=== PATIENT | female | born 1990 | race Two or more races ===

== ENCOUNTER 2019-09-13 21:51 | Emergency (ER) | payer OTHER ==
[~2019-09-13] VITALS: Ht 152.4 cm; Wt 50.0 kg
[2019-09-13 21:57] VITALS: BP 122/72
[2019-09-13] MEDS ORDERED: HYDROcodone/APAP 7.5/325MG 1 TAB TABLET PO ONE (23:00)
[2019-09-13] MEDS ORDERED: DIPH,PERTUSS(ACELL),TET VAC/PF 0.5 ML SYRINGE. VAX IM ONE (23:00)
--- NOTE | 2019-09-13 23:10 | RAD ---
Three views Left finger: Clinical History: Crush injury. Technique: AP view of the hand, as well as lateral and oblique collimated views of the little finger were obtained. Comparison: None. Findings: The visualized osseous structures appear normal. Impression: No acute bony abnormality. Electronically signed by: Alejandro Garcia III, MD (09/13/2019 11:08 PM) [id number]
[2019-09-13] MEDS ORDERED: LIDOCAINE 1% Multi-Dose 20 ML VIAL. INJ ONE (23:30)
[2019-09-13] MEDS ORDERED: HYDR-3164 PO (23:58)
[2019-09-13] MEDS ORDERED: CEPH500C PO (23:58)
--- NOTE | 2019-09-13 23:58 | PHYS DOC ---
Past Medical History Past Medical History: No Pertinent History Past Surgical History: No Surgical History Smoking Status: Never Smoker Alcohol Use: None General Adult EDM: Chief Complaint: LACERATION/AVULSION HPI: HPI: Patient is a 29 year old female who presents with injury to her right fifth finger. Patient was at work and was working on a conveyor when her gloved hand was pulled into the conveyor belt and tore the glove off injuring her finger. Patient denies any loss of sensation and reports moderate pain to the finger. She denies any other injuries. [] Review of Systems: Review of Systems: Constitutional: Denies fever or chills. [] Respiratory: Denies cough or shortness of breath. [] Cardiovascular: Denies chest pain or edema. [] Musculoskeletal: Positive left fifth finger injury and pain. [] Integument: Laceration to the left small finger. [] Neurologic: Denies headache, focal weakness or sensory changes. [] Heart Score: Risk Factors: Risk Factors: DM, Current or recent (<one month) smoker, HTN, HLP, family history of CAD, obesity. Risk Scores: Score 0 - 3: 2.5% MACE over next 6 weeks - Discharge Home Score 4 - 6: 20.3% MACE over next 6 weeks - Admit for Clinical Observation Score 7 - 10: 72.7% MACE over next 6 weeks - Early Invasive Strategies Current Medications: Current Medications Medications (Trade) Dose Ordered Sig/Casandra Start Time Stop Time Status Last Admin Dose Admin Acetaminophen/ Hydrocodone Bitart (Lortab 7.5/325) 1 tab 1X ONCE 09/13/19 23:00 09/13/19 23:01 DC 09/13/19 22:37 1 TAB Diphtheria/ Tetanus/Acell Pertussis (ADACEL TDap SYRINGE) 0.5 ml ONCE ONCE 09/13/19 23:00 09/13/19 23:01 DC 09/13/19 22:38 0.5 ML Lidocaine HCl (Lidocaine 1% 20ml Vial) 20 ml 1X ONCE 09/13/19 23:30 09/13/19 23:31 DC 09/13/19 23:10 20 ML Allergies: Allergies: Allergies Coded Allergies Type Severity Reaction Last Updated Verified No Known Drug Allergies 09/13/19 No Physical Exam: PE: Constitutional: Well developed, well nourished, no acute distress, non-toxic appearance. [] Cardiovascular: Regular rate and rhythm [] Lungs & Thorax: Bilateral breath sounds clear to auscultation [] Skin: There is a laceration to the left small finger that extends from the PIP joint distally to the tip of the finger along the lateral margin of the finger. Laceration extends into subcutaneous tissue with ragged margins. There is moderate soft tissue swelling with significant gap noted between margins. There is involvement of the fingernail with partial avulsion. [] Current Patient Data: Vital Signs: Vital Signs Date Time Temp Pulse Resp B/P (MAP) Pulse Ox O2 Delivery O2 Flow Rate FiO2 09/13/19 21:57 98.2 75 18 122/72 (89) Room Air 98.2 EKG: EKG: [] Radiology/Procedures: Radiology/Procedures: [] Course & Med Decision Making: Course & Med Decision Making Pertinent Labs and Imaging studies reviewed. (See chart for details) Laceration was repaired after prepping and draping in normal sterile fashion and anesthetizing with 1% lidocaine. A total of 9 simple interrupted sutures were placed utilizing 5-0 Ethilon suture material. Fairly good reapproximation of wound margins was achieved. Patient tolerated procedure well. SpotMe Disclaimer: SpotMe Disclaimer: This electronic medical record was generated, in whole or in part, using a voice recognition dictation system. Departure Departure Impression: Primary Impression: Finger laceration Qualified Codes: S61.317A - Laceration without foreign body of left little finger with damage to nail, initial encounter Disposition: 01 HOME, SELF-CARE Condition: STABLE Referrals: NO PCP (PCP) Patient Instructions: Form - Excuse from Work, School, or Physical Activity, Laceration Care, Adult Additional Instructions: Return for suture removal in 10-14 days. Scripts Cephalexin (CEPHALEXIN) 500 Mg Capsule 1 CAP PO BID, #20 CAP Prov: ANJELICA MCNEILL Jr. DO 09/13/19 Hydrocodone/Apap 5-325 (NORCO 5-325 TABLET) 1 Each Tablet 1 EACH PO PRN Q6HRS PRN for PAIN, #15 as needed for pain Prov: ANJELICA MCNEILL Jr. DO 09/13/19 ANJELICA MCNEILL Jr. DO September 13, 2019 23:58
== END 2019-09-14 00:11 | disposition home or self-care (01) ==
LOC: ER 21:51
DX: S61.317A Laceration without foreign body of left little finger with damage to nail, initial encounter (principal); R60.0 Localized edema; X50.9XXA Other and unspecified overexertion or strenuous movements or postures, initial encounter; Y93.89 Activity, other specified; Y92.89 Other specified places as the place of occurrence of the external cause; Y99.0 Civilian activity done for income or pay
CPT/HCPCS: 12001; 73140; 90471; 90715; 99283; J3490